=== PATIENT | male | born 1970 | race Caucasian/White ===

== ENCOUNTER 2016-09-21 12:46 | Emergency (ER) | payer OTHER ==
[~2016-09-21] VITALS: Ht 185.4 cm; Wt 115.7 kg
[~2016-09-21 12:46] MED LIST: CHLORTHALIDONE25 M1 PO; KEFLEX500 M1 PO; LOMOTIL 2.5-0.1 EACH PO; NAPROSYN500 M1 PO; PERCOCET 5-3251 EACH PO; ZOFRAN ODT4 M1 SL
--- NOTE | 2016-09-21 14:10 | ED GI/GU/ABDOMINAL COMPLAINT ---
History of Present Illness General Chief Complaint: Abdominal Pain/Flank Pain Stated Complaint: ABD PAIN, RECTAL BLEEDING Source: patient Exam Limitations: no limitations Vital Signs & Intake/Output Vital Signs & Intake/Output Vital Signs Date Time Temp Pulse Resp B/P Pulse O2 O2 Flow FiO2 Ox Delivery Rate 09/21 1321 99 Room Air 09/21 1249 97.6 68 18 154/81 96 Room Air Allergies Coded Allergies: NO KNOWN ALLERGIES (12/30/15) Reconcile Medications No Known Home Medications Triage Note: PT PRESENTS TO THE ER C/O UPPER GASTRIC PAIN 6/10 AND BLOOD IN STOOL. MAY 23 PT STATES HE HAD AN APPENDECTOMY. Triage Nurses Notes Reviewed? yes HPI: Mr. Mixon is a 46-year-old male with PMH of appendectomy in May presenting to the ED for epigastric pain. Patient states she was in his usual state of health today when he developed epigastric/left upper quadrant pain. Pain is 6 out of 10 nonradiating. Patient describes the pain as a burning sensation. He also had 2-3 episodes of diarrhea today. Patient's endorses some bright red red blood per rectum within the diarrhea. Patient denies nausea, vomiting, fever, chills, chest pain, shortness of breath. No known ill contacts , no alcohol use today. Past History Travel History Traveled to [place] past 21 day No Medical History Any Pertinent Medical History? none Neurological: NONE EENT: NONE Cardiovascular: PRESYNCOPAL EPISODES Respiratory: NONE Gastrointestinal: NONE Hepatic: NONE Renal: NONE Musculoskeletal: NONE Psychiatric: NONE Endocrine: NONE Blood Disorders: NONE Cancer(s): NONE HISTORICAL GUIDE/Reproductive: NONE History of MRSA: No History of VRE: No History of CDIFF: No Influenza Vaccine: 04/07/16 Surgical History Surgical History: non-contributory Psychosocial History What is your primary language Faroese Tobacco Use: Never used ETOH Use: occasional use Family History Hx Contributory? No Review of Systems Review of Systems Constitutional: Reports: chills. Denies: fever, malaise, weakness. EENTM: Reports: no symptoms. Respiratory: Reports: no symptoms. Cardiovascular: Reports: no symptoms. GI: Reports: abdominal pain, diarrhea, bloody stool. Denies: constipation, vomiting. Genitourinary: Reports: no symptoms. Musculoskeletal: Reports: no symptoms. Skin: Reports: no symptoms. Neurological/Psychological: Reports: no symptoms. Hematologic/Endocrine: Reports: no symptoms. Immunologic/Allergic: Reports: no symptoms. All Other Systems: Reviewed and Negative Physical Exam Physical Exam General Appearance: well developed/nourished, no apparent distress, alert, awake Head: atraumatic, normal appearance Eyes: Bilateral: normal appearance, PERRL, EOMI, normal inspection. Ears, Nose, Throat, Mouth: hearing grossly normal Neck: normal inspection, supple, full range of motion Respiratory: normal breath sounds, chest non-tender, no respiratory distress Cardiovascular: regular rate/rhythm Gastrointestinal: normal bowel sounds, soft, non-tender, distention, no rebound or guarding Rectal: normal inspection, normal rectal tone, heme negative stool, orange-chris colored stool Back: normal inspection, normal range of motion, no vertebral tenderness, no CVA tenderness bilaterally Extremities: normal range of motion Neurologic/Psych: no motor/sensory deficits, awake, alert, oriented x 3 Skin: intact, normal color, warm/dry Core Measures ACS in differential dx? Yes Severe Sepsis Present: No Septic Shock Present: No Progress Differential Diagnosis: AMI, bowel obstruction, cholecystitis, diverticulitis, gastritis, hernia Plan of Care: Orders Procedure Date/time Status LACTIC ACID 09/21 1630 Active EKG 09/21 1411 Active LIPASE 09/21 1330 Complete LACTIC ACID 09/21 1330 Complete HEPATIC FUNCTION PANEL 09/21 1330 Complete CBC WITHOUT DIFFERENTIAL 09/21 1330 Complete BASIC METABOLIC PANEL 09/21 1330 Complete Laboratory Tests 09/21/16 1408: Anion Gap 10, Estimated GFR > 60, BUN/Creatinine Ratio 17.8, Glucose 83, Lactic Acid 0.7, Calcium 9.2, Total Bilirubin 1.1, Direct Bilirubin 0.4, AST 34, ALT 54 , Alkaline Phosphatase 90, Total Protein 7.1, Albumin 4.1, Lipase 48, CBC w Diff NO MAN DIFF REQ, RBC 4.72, MCV 87.9, MCH 29.9, RDW 14.8 H, MPV 8.2, Gran % 60.2 , Lymphocytes % 19.1 L, Monocytes % 15.1 H, Eosinophils % 5.1 H, Basophils % 0.5, Absolute Granulocytes 3.3, Absolute Lymphocytes 1.0 L, Absolute Monocytes 0.8 H, Absolute Eosinophils 0.3, Absolute Basophils 0, PUBS MCHC 34.0 46 yo m w/ epigastric pain and rectal bleeding at home. Patient is otherwise well-appearing w/ normal vitals. Guaiac is negative. Stool was burnt orange/ reddish in color. Pt tolerating PO without issues. No vomiting to suggest an obstructive process. EKG unchanged from prior. NRS. No evidence of ischemia. Given the lack of shortness of breath or chest pain, ACS is unlikely. She has known CAD. Only risk factor is male sex. Patient tolerated by mouth in the emergency department without issues. No right upper quadrant pain or fever to suggest cholecystitis. His symptoms significantly improved about an hour or 2 after getting the GI cocktail. Discussed that this is most likely GERD and explained that if his symptoms worsen he should return for reevaluation. He daily Zantac or omeprazole as an outpatient. (YOLETTE MATTHEWS,VENESSA) Initial ED EKG: normal axis, normal intervals, normal p-waves, normal QRS complex, normal sinus rhythm, bradycardia Prior EKG: unchanged Departure Departure Time of Disposition: 1527 Disposition: HOME OR SELF CARE Condition: Stable Clinical Impression Primary Impression: GERD (gastroesophageal reflux disease) Qualifiers: Esophagitis presence: esophagitis presence not specified Qualified Code: K21.9 - Gastro-esophageal reflux disease without esophagitis Referrals: JAMARCUS LAKHANI (PCP/Family) Additional Instructions: Please use any [id number] acid christmas bell ringer to help with the GERD (examples are : Zantac, Nexium). If you have ongoing pain please return to the emergency department for evaluation otherwise he can follow up with her primary care doctor in 1-2 days. If you are unable to keep down food or drink, develop a fever, lightheadedness or any other concerning symptoms please come to the emergency department for evaluation. Departure Forms: Customer Survey General Discharge Information Prescriptions: Current Visit Scripts No Known Home Medications
[2016-09-21 14:29] LABS: ABSOLUTE BASOPHIL COUNT 0 /CUMM (0.0-0.2); ABSOLUTE EOSINOPHIL COUNT 0.3 /CUMM (0.0-0.7); ABSOLUTE GRANULOCYTE CT 3.3 /CUMM (1.4-6.5); ABSOLUTE MONOCYTE COUNT 0.8 /CUMM (0.10-0.60); BASOPHIL % 0.5 % (0.0-2.0); EOSINOPHIL % 5.1 % (0-5); GRANULOCYTE % 60.2 % (42.2-75.2); HEMATOCRIT 41.5 % (42-52); MEAN CORPUSCULAR HGB 29.9 PG (27.0-31.0); MEAN CORPUSCULAR VOLUME 87.9 FL (80.0-94.0); MEAN PLATELET VOLUME 8.2 FL (7.4-10.4); PLATELET COUNT 226 /CUMM (130-400); RBC DISTRIBUTION WIDTH 14.8 % (11.5-14.5); RED BLOOD CELL CT 4.72 /CUMM (4.70-6.10); WHITE BLOOD CELL COUNT 5.4 /CUMM (4.8-10.8)
[2016-09-21 15:44] VITALS: BP 120/72
== END 2016-09-21 15:46 ==
LOC: ERH 12:46
PROVIDERS: Emergency Medicine
DX: K21.9 Gastro-esophageal reflux disease without esophagitis (principal)
CPT/HCPCS: 93005; 93010